=== PATIENT | male | born 1990 | race African-American/Black ===

== ENCOUNTER 2016-05-14 21:37 | Inpatient (IN) | payer SELFPAY ==
[~2016-05-14] VITALS: Ht 175.3 cm; Wt 67.6 kg
[2016-05-14 23:26] LABS: Basophils # (auto) 0 uL; Basophils % (auto) 0.3 % (0.0-2.0); Eosinophils # (auto) 0.1 uL; Eosinophils % (auto) 1.1 % (0.0-7.0); Hematocrit 45.9 % (41.0-53.0); Hemoglobin 15.3 g/dL (13.5-17.5); Lymphocytes # (auto) 1.6 uL; Mean Corpuscular Hemoglobin 28.9 pg (28.0-32.0); Mean Corpuscular Hgb Conc. 33.2 g/dL (32.0-36.0); Mean Platelet Volume 8.9 fL (7.4-10.4); Monocytes # (auto) 0.5 uL; Monocytes % (auto) 7.8 % (0.0-12.0); Neutrophils # (auto) 4.7 uL; Neutrophils % (auto) 67.8 % (37.0-80.0); Platelet Count (auto) 235 10^3/uL (140-450); Red Cell Distribution Width 13.3 % (11.6-16.0); White Blood Cell 6.9 10^3/uL (4.4-10.8)
[2016-05-14 23:37] LABS: Partial Thromboplastin Time 24.8 sec (22.64-33.71)
[2016-05-14 23:39] LABS: INR 1.17 (0.9-1.15)
[2016-05-14 23:42] LABS: Albumin 3.9 g/dL (3.4-5.0); Anion Gap 14 (5-15); Aspartate Aminotransferase 13 U/L (15-37); BUN/Creatinine Ratio 10.1; Blood Urea Nitrogen 12 mg/dL (7-18); Calcium 9.2 mg/dL (8.5-10.1); Carbon Dioxide 22 mmol/L (21-32); Chloride 103 mmol/L (98-107); GFR African American 96 mL/min; GFR Non-African American 79 mL/min; Glucose 97 mg/dL (74-106); Potassium 3.6 mmol/L (3.5-5.1); Sodium 139 mmol/L (136-145)
[2016-05-14 23:45] LABS: Alkaline Phosphatase 70 U/L (45-117); Bilirubin, Total 1.3 mg/dL (0.2-1.0); Total Protein 7.5 g/dL (6.4-8.2)
[2016-05-15] MEDS ORDERED: ONDANSETRON HCL 4 MG/2 ML VIAL IV ONE (00:45)
[2016-05-15] MEDS ORDERED: MORPHINE SULFATE 4 MG/ML SYRG IV ONE (00:45)
[2016-05-15] MEDS ORDERED: IOHEXOL 350 MG/ML 100ML IJ ONE (00:59)
[2016-05-15] MEDS ORDERED: ENOXAPARIN SOD 80 MG/0.8ML SYRINGE SC ONE (02:30)
[2016-05-15 04:56] LABS: Urine Bilirubin Negative (Negative); Urine Blood Negative /uL (Negative); Urine Color Yellow (Yellow); Urine Glucose Normal (Normal); Urine Ketone 2+ (Negative); Urine Nitrite Negative (Negative); Urine RBC <1 /hpf (0 - 3); Urine Urobilinogen Normal (Negative)
[2016-05-15] MEDS ORDERED: MORPHINE SULFATE 4 MG/ML SYRG IV PRN (06:30)
[2016-05-15] MEDS ORDERED: ONDANSETRON HCL 4 MG/2 ML VIAL IV PRN (06:30)
[2016-05-15] MEDS ORDERED: LACTULOSE 20Gm/30ML SOLN PO PRN (06:30)
[2016-05-15] MEDS ORDERED: NITROGLYCERIN 0.4 MG SL TAB SL PRN (06:30)
[2016-05-15] MEDS: ENOXAPARIN SOD 80 MG/0.8ML SYRINGE SC SCH ×2 (10:00→22:13)
[2016-05-15] MEDS ORDERED: ENOXAPARIN SOD 30 MG/0.3 ML SYRINGE SC SCH (10:00)
[2016-05-15] MEDS ORDERED: PANTOPRAZOLE SODIUM 40 MG/10 ML VIAL IV SCH (10:00)
[2016-05-15 16:38] VITALS: BP 126/72
[2016-05-15] MEDS ORDERED: WARFARIN SODIUM 5 MG TAB PO ONE (17:00)
[2016-05-15] MEDS: MORPHINE SULFATE 4 MG/ML SYRG IV PRN (18:49)
[2016-05-15 21:29] VITALS: BP 115/58
[2016-05-15] MEDS: HYDROcodone-ACET 5/325MG TAB PO PRN (22:12)
[2016-05-16 05:16] VITALS: BP 108/60
[2016-05-16] MEDS: HYDROcodone-ACET 5/325MG TAB PO PRN ×2 (06:45→23:19)
[2016-05-16 09:00] VITALS: BP 109/60
[2016-05-16] MEDS: ENOXAPARIN SOD 80 MG/0.8ML SYRINGE SC SCH ×2 (09:44→22:05)
[2016-05-16 11:14] LABS: INR 1.15 (0.9-1.15); Partial Thromboplastin Time 29.6 sec (22.64-33.71); Prothrombin Time 11.8 sec (9.37-12.3)
[2016-05-16 13:09] VITALS: BP 120/63
[2016-05-16] MEDS: MORPHINE SULFATE 4 MG/ML SYRG IV PRN ×2 (13:52→20:32)
[2016-05-16] MEDS ORDERED: WARFARIN SODIUM 10 MG TAB PO ONE (17:00)
[2016-05-16 17:15] VITALS: BP 126/65
[2016-05-16 22:08] VITALS: BP 115/60
[2016-05-17] VITALS (7 sets, daily range): BP systolic 114–140; BP diastolic 56–70
[2016-05-17] MEDS: MORPHINE SULFATE 4 MG/ML SYRG IV PRN (05:39)
[2016-05-17 06:24] LABS: Basophils # (auto) 0 uL; Basophils % (auto) 0.3 % (0.0-2.0); Eosinophils # (auto) 0.1 uL; Eosinophils % (auto) 1.9 % (0.0-7.0); Hemoglobin 15.4 g/dL (13.5-17.5); Lymphocytes # (auto) 3.1 uL; Lymphocytes % (auto) 45.5 % (10.0-50.0); Mean Corpuscular Hemoglobin 28.7 pg (28.0-32.0); Mean Corpuscular Hgb Conc. 32.7 g/dL (32.0-36.0); Mean Corpuscular Volume 87.8 fL (80.0-100.0); Mean Platelet Volume 8.9 fL (7.4-10.4); Monocytes # (auto) 0.6 uL; Monocytes % (auto) 8.6 % (0.0-12.0); Neutrophils # (auto) 2.9 uL; Neutrophils % (auto) 43.7 % (37.0-80.0); Platelet Count (auto) 222 10^3/uL (140-450); Red Cell Distribution Width 13.5 % (11.6-16.0); White Blood Cell 6.7 10^3/uL (4.4-10.8)
[2016-05-17 06:42] LABS: Prothrombin Time 13.4 sec (9.37-12.3)
[2016-05-17 06:43] LABS: INR 1.3 (0.9-1.15)
[2016-05-17] MEDS: ENOXAPARIN SOD 80 MG/0.8ML SYRINGE SC SCH ×2 (10:18→21:56)
[2016-05-17] MEDS ORDERED: WARFARIN SODIUM 10 MG TAB PO ONE (17:00)
[2016-05-17] MEDS: MORPHINE SULF INJ 2 MG/ML SYRINGE 1ML IV PRN ×2 (17:15→23:45)
[2016-05-18 05:00] VITALS: BP 116/60
[2016-05-18 06:45] LABS: Partial Thromboplastin Time 34.2 sec (22.64-33.71)
[2016-05-18 06:49] LABS: INR 2.34 (0.9-1.15); Prothrombin Time 24.1 sec (9.37-12.3)
[2016-05-18 08:58] VITALS: BP 121/72
[2016-05-18] MEDS: ENOXAPARIN SOD 80 MG/0.8ML SYRINGE SC SCH ×2 (09:08→21:56)
[2016-05-18] MEDS: MORPHINE SULF INJ 2 MG/ML SYRINGE 1ML IV PRN ×2 (09:10→18:08)
[2016-05-18 13:00] VITALS: BP 126/78
[2016-05-18 17:00] VITALS: BP 122/72
[2016-05-18] MEDS ORDERED: WARFARIN SODIUM 2.5 MG TAB PO ONE (17:00)
[2016-05-18 22:00] VITALS: BP 110/76
[2016-05-19 05:00] VITALS: BP 113/69
[2016-05-19 05:51] LABS: Partial Thromboplastin Time 37.6 sec (22.64-33.71)
[2016-05-19 05:52] LABS: INR 2.22 (0.9-1.15); Prothrombin Time 22.9 sec (9.37-12.3)
[2016-05-19 09:14] VITALS: BP 119/61
[2016-05-19] MEDS: ENOXAPARIN SOD 80 MG/0.8ML SYRINGE SC SCH (10:33)
[2016-05-19 12:43] VITALS: BP 120/72
[2016-05-19] MEDS ORDERED: WARFARIN SODIUM 5 MG TAB PO ONE (17:00)
== END 2016-05-19 19:25 | disposition home or self-care (01) | DRG 176 ==
LOC: ER 21:40 → TELE 21:41 → EAST 05-15 14:58 → WEST WING 05-15 16:38 → TELE-WESTW 05-15 17:19
PROVIDERS: ADMIT Family Medicine; ATTEND Internal Medicine
DX: I26.99 Other pulmonary embolism without acute cor pulmonale (principal); F17.210 Nicotine dependence, cigarettes, uncomplicated; Z86.718 Personal history of other venous thrombosis and embolism; Z82.49 Family history of ischemic heart disease and other diseases of the circulatory system
CPT/HCPCS: 36415; 71010; 71275; 80053; 80320; 81001; 85025; 85049; 85379; 85610; 85730; 93005; 93971; 94761; 96372; 96374; 96375; 96376; C9113; J2405

== ENCOUNTER 2016-05-19 21:34 | Emergency (ER) | payer SELFPAY ==
[~2016-05-19] VITALS: Ht 175.3 cm; Wt 72.6 kg
[2016-05-19 22:15] LABS: Basophils # (auto) 0 uL; Basophils % (auto) 0.2 % (0.0-2.0); Eosinophils # (auto) 0.2 uL; Eosinophils % (auto) 3.5 % (0.0-7.0); Hematocrit 43.4 % (41.0-53.0); Hemoglobin 14.5 g/dL (13.5-17.5); Lymphocytes # (auto) 1.8 uL; Lymphocytes % (auto) 35.8 % (10.0-50.0); Mean Corpuscular Hgb Conc. 33.3 g/dL (32.0-36.0); Mean Corpuscular Volume 87.1 fL (80.0-100.0); Mean Platelet Volume 8.1 fL (7.4-10.4); Monocytes # (auto) 0.5 uL; Monocytes % (auto) 10.8 % (0.0-12.0); Neutrophils # (auto) 2.5 uL; Neutrophils % (auto) 49.7 % (37.0-80.0); Platelet Count (auto) 220 10^3/uL (140-450); Red Cell Distribution Width 13.2 % (11.6-16.0); White Blood Cell 5.1 10^3/uL (4.4-10.8)
[2016-05-19 22:30] LABS: Albumin 3.3 g/dL (3.4-5.0); BUN/Creatinine Ratio 17.8; Calcium 8.7 mg/dL (8.5-10.1); Potassium 3.9 mmol/L (3.5-5.1)
[2016-05-19 22:33] LABS: Bilirubin, Total 0.4 mg/dL (0.2-1.0); Total Protein 7.2 g/dL (6.4-8.2)
[2016-05-19 22:43] LABS: Partial Thromboplastin Time 35.3 sec (22.64-33.71)
[2016-05-19 22:50] LABS: INR 2.07 (0.9-1.15); Prothrombin Time 21.3 sec (9.37-12.3)
[2016-05-20 00:12] VITALS: BP 114/61
[2016-05-20 00:20] LABS: Platelet Estimate Adequate
[2016-05-20 00:21] LABS: RBC Morphology Normal
== END 2016-05-20 02:24 | disposition home or self-care (01) ==
LOC: EDBD 21:34 → ER 21:37
DX: R06.02 Shortness of breath (principal); R07.9 Chest pain, unspecified; Z79.01 Long term (current) use of anticoagulants; Z86.711 Personal history of pulmonary embolism; Z86.718 Personal history of other venous thrombosis and embolism; F17.210 Nicotine dependence, cigarettes, uncomplicated
CPT/HCPCS: 36415; 71010; 80053; 85025; 85379; 85610; 85730; 93005; 94761